=== PATIENT | male | born 1985 | race Caucasian/White ===

== ENCOUNTER 2020-05-30 07:05 | Emergency (ER) | payer OTHER ==
[2020-05-30 07:13] VITALS: RESP 18; TEMP 97.8
[2020-05-30] MEDS ORDERED: GLUCAGON 1 MG/ML VIAL IVP STA (07:20)
[2020-05-30] MEDS ORDERED: methylPREDNISolone SOD SUCCI 125 MG/2 ML VIAL IV STA (07:20)
[2020-05-30] MEDS ORDERED: FAMOTIDINE 20 MG/2 ML VIAL IV STA (07:20)
[2020-05-30] MEDS ORDERED: IPRATROPIUM-ALBUTEROL 3 ML NEB INHALATION STA (07:21)
--- NOTE | 2020-05-30 07:25 | ED ---
General Adult HPI - General Chief complaint: ENT Stated complaint: ENT Time Seen by Provider: 05/30/20 07:15 Source: patient, RN notes reviewed Mode of arrival: ambulatory Limitations: no limitations - History of Present Illness Initial comments: This is a 35-year-old male presents emergency Department chief complaint of possible esophageal foreign body. Patient states he was eating some foot with nuts in it yesterday around 3:30pm and states that he felt a piece of not stuck. Patient states he is able to drink some fluids but states currently any food. Patient does have a history of esophageal issues including esonophillic esophagitis. Patient denies any fevers or chills. Patient is a heavy smoker states that he's had some wheezing. Patient denies any headaches, abdominal pain, diarrhea constipation or complaints. - Related Data Home Medications Medication Instructions Recorded Confirmed Butalb/APAP/Caff 50-325-40Mg 1 tab PO DAILY PRN 05/30/20 05/30/20 [Fioricet 50-325-40] Diphenoxylate HCl/Atropine 1 tab PO BID PRN 05/30/20 05/30/20 [Lomotil 2.5-0.025 mg Tablet] Imipramine [Tofranil] 25 mg PO BID 05/30/20 05/30/20 Pantoprazole Sodium [Protonix] 40 mg PO DAILY 05/30/20 05/30/20 Propranolol HCl [Propranolol HCl 60 mg PO HS 05/30/20 05/30/20 ER] Allergies Allergy/AdvReac Type Severity Reaction Status Date / Time codeine Allergy Anaphylaxis Verified 05/30/20 10:30 Penicillins Allergy Unknown Verified 05/30/20 10:30 shellfish derived Allergy Anaphylaxis Verified 05/30/20 10:30 milk AdvReac Nausea & Verified 05/30/20 10:30 Vomiting & Diarrhea drinking milk AdvReac Nausea & Uncoded 05/30/20 10:30 Vomiting & Diarrhea liquidmilk AdvReac Nausea & Uncoded 05/30/20 10:30 Vomiting & Diarrhea Review of Systems ROS Statement: Those systems with pertinent positive or pertinent negative responses have been documented in the HPI. ROS Other: All systems not noted in ROS Statement are negative. Past Medical History Past Medical History: Asthma, COPD, GERD/Reflux Additional Past Medical History / Comment(s): EOE. Chrons History of Any Multi-Drug Resistant Organisms: None Reported Past Surgical History: No Surgical Hx Reported Additional Past Surgical History / Comment(s): COLONOSCOPY/EGD, top teeth were extracted, steroid injections in his back Past Anesthesia/Blood Transfusion Reactions: No Reported Reaction Past Psychological History: ADD/ADHD, Anxiety, Bipolar, Depression, Panic Disorder Smoking Status: Current every day smoker Past Alcohol Use History: None Reported Past Drug Use History: Marijuana - Past Family History Father Family Medical History: Coronary Artery Disease (CAD) Additional Family Medical History / Comment(s): Father at age 53 from coronary artery disease Brother(s) Additional Family Medical History / Comment(s): He has one brother that is healthy with no major medical problems. He has no sisters. Mother Family Medical History: Diabetes Mellitus Additional Family Medical History / Comment(s): Mother is 48 years old and lives in [place]. She also has Crohn's General Exam Limitations: no limitations General appearance: alert, in no apparent distress Head exam: Present: atraumatic, normocephalic, normal inspection Eye exam: Present: normal appearance, PERRL, EOMI. Absent: scleral icterus, conjunctival injection, periorbital swelling ENT exam: Present: normal exam, normal oropharynx, mucous membranes moist, TM's normal bilaterally Neck exam: Present: normal inspection, full ROM. Absent: tenderness, meningismus, lymphadenopathy Respiratory exam: Present: wheezes. Absent: normal lung sounds bilaterally, respiratory distress, rales, rhonchi, stridor Cardiovascular Exam: Present: regular rate, normal rhythm, normal heart sounds. Absent: systolic murmur, diastolic murmur, rubs, gallop, clicks GI/Abdominal exam: Present: soft, normal bowel sounds. Absent: distended, tenderness, guarding, rebound, rigid Course Vital Signs 05/30/20 05/30/20 05/30/20 07:08 08:31 08:57 Temperature 97.8 F Pulse Rate 91 96 92 Respiratory 18 Rate Blood Pressure 126/72 O2 Sat by Pulse 100 Oximetry 05/30/20 05/30/20 05/30/20 09:04 09:55 11:27 Temperature Pulse Rate 69 77 125 H Respiratory 18 18 18 Rate Blood Pressure 154/86 145/85 144/99 O2 Sat by Pulse 97 98 Oximetry Medical Decision Making - Medical Decision Making I did contact Dr. Ga was GI. Patient had endoscopy in the emergency department. There was a large esophageal foreign body removed along with evidence of esophagitis. Patient will follow-up with GI in 2 weeks patient will be discharged on omeprazole. Patient advised to have soft diet today. Disposition Clinical Impression: Esophageal foreign body, Esophagitis Disposition: HOME SELF-CARE Condition: Stable Instructions (If sedation given, give patient instructions): Esophageal Foreign Body (ED), Moderate Sedation (ED) Additional Instructions: Please follow soft diet next 24 hours.Please return to the Emergency Department if symptoms worsen or any other concerns. Is patient prescribed a controlled substance at d/c from ED?: No Referrals: None,Stated [Primary Care Provider] - 1-2 days Tiffanie Ragland MD [STAFF PHYSICIAN] - 1-2 days Time of Disposition: 11:21
[2020-05-30] MEDS ORDERED: LIDOCAINE VISCOUS 2% 15 ML CUP MUCOUS MEM ONE (08:24)
--- NOTE | 2020-05-30 09:14 | XR ---
EXAMINATION TYPE: XR chest 1V DATE OF EXAM: 05/30/2020 COMPARISON: None INDICATION: Short of breath TECHNIQUE: Single frontal view of the chest is obtained. FINDINGS: The heart size is normal. The pulmonary vasculature is normal. Subtle nonspecific infiltrate may be within the mid lower lung schofield. Findings are nonspecific. Katt elate for atelectasis or atypical pneumonia. No radiopaque foreign body is identified IMPRESSION: 1. There may be some minimal infiltrate in the mid lower lung schofield which is nonspecific. Correlate for subsegmental atelectasis or atypical pneumonia.
--- NOTE | 2020-05-30 09:15 | XR ---
EXAMINATION TYPE: XR soft tissue neck DATE OF EXAM: 05/30/2020 COMPARISON: None HISTORY: Choked walnut Technique: 2 view soft tissue neck FINDINGS: No radiopaque foreign bodies are evident. Prevertebral space is normal. Epiglottis appears within nor mal limits. Epiglottic folds are normal. Subglottic airway appears unremarkable. IMPRESSION: 1. NORMAL SOFT TISSUE NECK
[2020-05-30] MEDS ORDERED: DIAZEPAM 5 MG/ML 2 ML INJ IVP STA (09:21)
[2020-05-30] MEDS ORDERED: NITROGLYCERIN SL TABS 0.4 MG TAB SUBLINGUAL STA (09:21)
[2020-05-30] MEDS ORDERED: SODIUM CHLORIDE 0.9% 1,000 ML IV ONE (11:00)
[2020-05-30] MEDS ORDERED: LIDOCAINE 1% INJ 10MG/ML (20 ML MDV) ONE (11:13)
[2020-05-30] MEDS ORDERED: PROPOFOL 10 MG/ML 20 ML VIAL IV ONE (11:13)
[2020-05-30 11:29] VITALS: BP 144/99; PULSE 125
--- NOTE | 2020-05-30 11:34 | P.PCN ---
Date of Procedure: 05/30/20 Procedure(s) Performed: BRIEF HISTORY: Patient is a 35-year-old, pleasant, white male with history of years of age esophagitis came to the emergency room with acute food impaction. He was eating some [place] with bread and could not swallow any further since dinner last night. He scheduled for an upper endoscopy on an emergency basis.. PROCEDURE PERFORMED: Esophagogastroduodenoscopy with biopsy and foreign body removal. PREOPERATIVE DIAGNOSIS: Acute food impaction. IV sedation per anesthesia. PROCEDURE: After informed consent was obtained, the patient was brought into the endoscopy unit. IV sedation was administered by Anesthesia under continuous monitoring. Initially the Olympus GIF-140 video endoscope was inserted into the mouth. Esophagus intubated without any difficulty. It was gradually advanced into the distal esophagus and there was a 100 was impacted in the esophagus. Using a Calix net the one that was removed without any difficulty. The scope was reintroduced into the mouth and esophagus intubated without any difficulty and was gradually advanced into the stomach and duodenum and carefully examined. The bulb and the second part of the duodenum appeared normal. The scope at this time was withdrawn to the stomach, adequately insufflated with air, and upon careful examination, mucosa of the antrum, body, cardia and the fundus appeared normal. The scope was then withdrawn into the esophagus. The GE junction was located at 45 cm from the incisors. There were multiple superficial mucosal rings with longitudinal ridges and 4 hours involving the entire esophagus with some mild narrowing in the distal esophagus CONSISTENT with eosinophilic esophagitis. Biopsies were done from the mid and distal esophagus. The proximal esophagus appeared normal. There were no erosions or ulcerations seen and the patient tolerated the procedure well. IMPRESSION: 1. Impacted [place] in the distal esophagus status post removal as described above. 2. Multiple mucosal rings with longitudinal ridges and follows with mucosal edema involving the entire esophagus consistent with years of age esophagitis. Mild distal esophageal stricture noted.. RECOMMENDATIONS: The findings of this examination were discussed with the patient as well as his family. He will remain on a soft diet. He will continue with Protonix 40 mg daily. He was advised to follow up in office in 2 weeks..
--- NOTE | 2020-05-30 15:52 | CONS ---
CONSULTATION DATE OF SERVICE: 05/30/2020 REASON FOR CONSULTATION: Acute food impaction. HISTORY OF PRESENT ILLNESS: The patient is a 35-year-old pleasant white male who came to the emergency room with acute food impaction. He was eating a piece of walnut with bread yesterday and could not swallow any further. He tried to retch and self-induced emesis with no help. He had a similar episode about five years ago and was diagnosed with eosinophilic esophagitis. He has been taking Prilosec since then. He has been having intermittent dysphagia to solids on and off for the last 10 years duration. He reports no heartburn. No chest pain. PAST MEDICAL HISTORY: Significant for hypertension, chronic migraine headaches, IBS, questionable Crohn disease, hypertension. MEDICATIONS AT HOME: Protonix, Tofranil, Lomotil, Fioricet, Propranolol. ALLERGIES TO: PENICILLIN, SHELLFISH, MILK and CODEINE. SOCIAL HISTORY: Chronic smoker, no alcohol use. PAST SURGICAL HISTORY: EGD and colonoscopy five years ago. FAMILY HISTORY: Father had coronary artery disease and brother had no medical problems. Mother has diabetes mellitus. REVIEW OF SYSTEMS: CARDIOPULMONARY: No chest pain, no shortness of breath. GENITOURINARY: No dysuria or hematuria. MUSCULOSKELETAL: Unremarkable. SKIN: Unremarkable. ENDOCRINE: Unremarkable. PSYCHIATRIC: Unremarkable. NEUROLOGY: Unremarkable. ENT/VISION: Unremarkable. CONSTITUTIONAL: No recent weight loss. No fever, chills, night sweats. PHYSICAL EXAMINATION: He appears comfortable. No apparent distress. Vital signs are stable. Blood pressure 126/72, pulse rate 98, and temperature 97.8. HEENT examination unremarkable. Conjunctivae pink, sclerae anicteric. Oral cavity no lesions. NECK: No JVD or lymph node enlargement. CHEST was clear to auscultation. HEART: Regular rate and rhythm. ABDOMEN: Soft. Bowel sounds are positive. No organomegaly. EXTREMITIES: No pedal edema. NEURO: He is alert and oriented x3. No focal deficits. LAB: No labs done at the time of this admission to the hospital. IMPRESSION: 1. Acute food impaction in this patient with history of eosinophilic esophagitis diagnosed five years ago, presently maintained on Protonix 40 mg daily. 2. History of chronic migraine headaches. 3. History of Crohn's disease and irritable bowel syndrome. RECOMMENDATIONS: Proceed with EGD with foreign body removal. I discussed with the patient risks, benefits and complications and he is agreeable to it. Thank you for this consultation. ANA / SABINEN: [id number] /
== END 2020-05-30 11:44 | disposition home or self-care (01) ==
LOC: EC 07:05
DX: T18.128A Food in esophagus causing other injury, initial encounter (principal); K21.00 Gastro-esophageal reflux disease with esophagitis, without bleeding; F90.9 Attention-deficit hyperactivity disorder, unspecified type; F32.9 Major depressive disorder, single episode, unspecified; F41.0 Panic disorder [episodic paroxysmal anxiety]; F41.9 Anxiety disorder, unspecified; F17.200 Nicotine dependence, unspecified, uncomplicated; Z79.899 Other long term (current) drug therapy; Z88.5 Allergy status to narcotic agent; Z88.0 Allergy status to penicillin; Z91.011 Allergy to milk products; Z91.013 Allergy to seafood
CPT/HCPCS: 94640; 70360; 71045; 43239; 43247; 99284; 96374; 96375 ×3; J1610; J2930; J3360; J2001; J2704; 88305